=== PATIENT | male | born 1955 | race African-American/Black ===

== ENCOUNTER 2022-04-08 18:03 | Emergency (ER) | payer MEDICARE ==
[~2022-04-08] VITALS: Ht 188 cm; Wt 86.2 kg
--- NOTE | 2022-04-08 18:22 | NUR ---
DR SEGUNDO AT THE BEDSIDE
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
[2022-04-08] MEDS ORDERED: IV NS 0.9% 250 ML IV ONE (19:11)
[2022-04-08] MEDS ORDERED: IOHEXOL-300 100 ML VIAL IV ONE (19:11)
[2022-04-08] MEDS ORDERED: CT SWABBABLE VALVE TRANS SET 1 EA INFUS.SET MC ONE (19:11)
[2022-04-08 19:16] LABS: ALANINE AMINOTRANSFERASE 24 U/L (12-78); ALBUMIN 4.1 g/dL (3.4-5.0); ALKALINE PHOSPHATASE 61 U/L (46-116); ASPARTATE AMINOTRANSFERASE 22 U/L (15-37); BILIRUBIN,DIRECT 0.1 mg/dL (0.0-0.2); BILIRUBIN,TOTAL 0.3 mg/dL (0.2-1.0); CALCIUM, SERUM 8.8 mg/dL (8.5-10.1); CARBON DIOXIDE 30 mmol/L (21-32); CHLORIDE 103 mmol/L (98-107); CREATININE 1.1 mg/dL (0.6-1.3); GLUCOSE 89 mg/dL (74-106); LIPASE 15 U/L (73-393); POTASSIUM 3.9 mmol/L (3.5-5.1); SODIUM SERUM 139 mmol/L (136-145); TOTAL PROTEIN, SERUM 8.1 g/dL (6.4-8.2); UREA NITROGEN, BLOOD 14 mg/dL (7-18)
--- NOTE | 2022-04-08 19:18 | NUR ---
PT TAKEN TO CT VIA [facility]
--- NOTE | 2022-04-08 19:41 | NUR ---
PT BACK FROM CT VIA [facility]
[2022-04-08 19:59] LABS: BASOPHILS % (AUTO) 0.5 % (0.0-2.0); EOSINOPHILS % (AUTO) 1.8 % (0.0-6.0); HEMATOCRIT 41 % (39-51); HEMOGLOBIN 13.4 g/dL (13.5-17.5); LYMPHOCYTES # (AUTO) 1.1 K/uL (0.8-4.8); LYMPHOCYTES % (AUTO) 29.1 % (20.0-44.0); MEAN CORPUSCULAR HGB CONC 33 g/dl (31.0-36.0); MEAN CORPUSCULAR VOLUME 83 fL (80-96); MONOCYTES # (AUTO) 0.4 K/uL (0.1-1.30); MONOCYTES % (AUTO) 11.1 % (2.0-12.0); NEUTROPHILS # (AUTO) 2.1 K/uL (1.8-8.9); NEUTROPHILS % (AUTO) 57.5 % (43.0-81.0); PLATELET COUNT (AUTO) 215 K/uL (150-450); RED BLOOD CELL COUNT(AUTO) 4.96 MIL/uL (4.5-6.0); WHITE BLOOD COUNT (AUTO) 3.6 K/uL (4.3-11.0)
--- NOTE | 2022-04-08 20:34 | NUR ---
DR SEGUNDO ON THE PHONE WITH ONCALL FOR DR HENDERSON, VASCULAR SURGEON
--- NOTE | 2022-04-08 20:40 | NUR ---
NECK FITTER AT PT'S BEDSIDE
[2022-04-08] MEDS ORDERED: HYDROCODONE/APAP 10/325MG TABLET ONE (20:48)
[2022-04-08] MEDS: HYDROCODONE/APAP 10/325MG TABLET PO ONE (20:50)
--- NOTE | 2022-04-08 20:50 | NUR ---
STRIKE OFF MACHINE OPERATOR AT PT'S BEDSIDE
[2022-04-08] MEDS ORDERED: TRAM50TA2 PO (21:53)
--- NOTE | 2022-04-08 22:10 | NUR ---
Patient discharged to home in stable condition. Written and verbal after care instructions given. Patient verbalizes understanding of instruction. IV removed. Catheter intact and site benign. Pressure and 4x4 applied to site. No bleeding noted. PT ambulatory with a steady gait
[2022-04-08 22:18] VITALS: BP 162/114
== END 2022-04-08 22:19 | disposition home or self-care (01) ==
LOC: ER 18:05
DX: S29.8XXA Other specified injuries of thorax, initial encounter (principal); S09.90XA Unspecified injury of head, initial encounter; S16.1XXA Strain of muscle, fascia and tendon at neck level, initial encounter; S59.901A Unspecified injury of right elbow, initial encounter; I10 Essential (primary) hypertension; V89.2XXA Person injured in unspecified motor-vehicle accident, traffic, initial encounter; Y93.89 Activity, other specified; Y92.411 Interstate highway as the place of occurrence of the external cause; Y99.8 Other external cause status
CPT/HCPCS: 36415; 70450; 71045; 71260; 72125; 73060; 73080; 74177; 80048; 80076; 83690; 84484 ×2; 85025; 85730; 93005; 99285; J7050; L0172; Q9967